=== PATIENT | female | born 1980 | race Caucasian/White ===

== ENCOUNTER 2024-12-12 14:10 | Outpatient (CLI) | payer BC, SELFPAY | END 2024-12-12 23:59 | disposition home or self-care (01) | LOC: LAB.DROPOF 12-13 13:29 | PROVIDERS: PCP Nurse Practitioner; Visit Provider Nurse Practitioner | DX: N39.0 Urinary tract infection, site not specified (principal) | CPT/HCPCS: 87086; 87088; 87186 ==